=== PATIENT | female | born 1985 | race Caucasian/White ===

== ENCOUNTER → 2020-04-03 | Outpatient (CLI) | payer OTHER | LOC: COL.RAD 04-02 13:30 | DX: O99.281 Endocrine, nutritional and metabolic diseases complicating pregnancy, first trimester (principal); Z3A.00 Weeks of gestation of pregnancy not specified ==

== ENCOUNTER 2020-10-06 01:40 | Outpatient (CLI) | payer OTHER ==
[~2020-10-06] VITALS: Ht 157.5 cm; Wt 74.1 kg
--- NOTE | 2020-10-06 01:50 | NUR ---
Pt arrives on unit ambulatory with office automation clerk. States ctx x24 hours that have increased over the past several hours with bloody show. Denies LOF and reports GFM. Changed into a clean gown. EFM and toco applied. VSS. SVE per this RN /-2. Pt desires to [facility]. Admission assessment completed. Pt updated on POC. Bed locked in low position. Call light within reach. No questions or concerns at this time.
[2020-10-06] MEDS ORDERED: PRENATAL MVI (01:57)
[2020-10-06 02:10] VITALS: BP 123/73; PULSE 98; TEMP 98.1
--- NOTE | 2020-10-06 02:10 | NUR ---
Cat 1 FHR strip obtained. Pt taken off monitors to birthing ball and ambulate.
--- NOTE | 2020-10-06 02:53 | NUR ---
Pt back to monitors. SVE unchanged. Discharge instructions given. No questions or concerns at this time.
== END 2020-10-06 03:30 | disposition home or self-care (01) ==
LOC: LDRO 01:40
DX: O26.93 Pregnancy related conditions, unspecified, third trimester (principal); Z3A.39 39 weeks gestation of pregnancy

== ENCOUNTER 2020-10-06 15:59 | Inpatient (IN) | payer OTHER ==
[~2020-10-06] VITALS: Ht 157.5 cm; Wt 74.1 kg
[2020-10-06] VITALS (18 sets, daily range): BP systolic 80–120; BP diastolic 40–74; PULSE 78–111; TEMP 97.7–98.8
--- NOTE | 2020-10-06 15:45 | NUR ---
PATIENT TO LR 3. PATIENT STATES SHE IS HERE WITH CONTRACTIONS. PATIENT DENIES LEAKING OF FLUID OR BLEEDING. PATIENT STATES SHE WOULD LIKE TO HAVE A . SVE 2. DR HONG NOTIFIED. PATIENTS SPOUSE PRESENT. PATIENT CHANGED INTO GOWN, ON EFM, LEONEL BRICENO
[~2020-10-06 15:59] MED LIST: PRENATAL MVI
[2020-10-06 16:52] LABS: HEMATOCRIT 39.2 % (37.0-47.0); HEMOGLOBIN 13.4 g/dl (12.5-16.0); MEAN CELL VOLUME 92 fl (80.0-100.0); MEAN CORPUSCULAR HEMOGLOBIN 31 pg (27.0-31.0); MEAN CORPUSCULAR HGB CONC 34 g/dl (33.0-37.0); MEAN PLATELET VOLUME 9.6 fl (7.4-10.4); PLATELET COUNT 252 K/mm3 (130-400); RED BLOOD COUNT 4.28 M/mm3 (4.10-5.30); REDCELL DISTRIBUTION WIDTH-CV 14.6 % (11.5-14.5)
--- NOTE | 2020-10-06 17:32 | NUR ---
PATIENT REFUSES COVID VACCINE
--- NOTE | 2020-10-06 18:45 | NUR ---
184 DR HONG AWARE OF PT B/P. PT AWAKE AND ALERT. HOB ELEVATED. VAG BLEEDING WNL.
[2020-10-06 18:51] LABS: HYPOCHROMIA 1+; LYMPHOCYTE 2 % (20.0-51.0); NEUTROPHILS 95 % (42.0-75.2); PLATELET ESTIMATE NORMAL (NORMAL)
--- NOTE | 2020-10-06 19:15 | NUR ---
1915 REG DIET TAKEN.
--- NOTE | 2020-10-06 20:30 | NUR ---
2030 UNABLE TO MOVE LEGS. TURNED FROM SIDE TO SIDE. ABD BINDER ON. PERICARE DONE. FF AT UMBILICUS. SCDS ON. IV TO INT. TAKING PO WELL.
[2020-10-07 05:30] VITALS: BP 97/58; PULSE 92; TEMP 98.8
[2020-10-07 07:40] VITALS: BP 104/68; PULSE 78; TEMP 98.3
--- NOTE | 2020-10-07 09:34 | NUR ---
Initial visit; Parents thanked Legal Records Clerk for offering congratulations and God's blessings for the of their son. Legal Records Clerk thanked family for choosing [facility].
[2020-10-07 12:00] VITALS: BP 105/67; PULSE 84; TEMP 98
[2020-10-07 17:00] VITALS: BP 98/57; PULSE 97; TEMP 98.3
[2020-10-07 20:20] VITALS: BP 103/63; PULSE 96; TEMP 97.8
[2020-10-08] MEDS ORDERED: MOTRIN 800800 MG/TAB PO (07:26)
[2020-10-08] MEDS ORDERED: PERCOCET 325 MG1 TA2 PO (07:27)
[2020-10-08] MEDS ORDERED: SENOKOT S 50 MG1 TAB PO (07:27)
[2020-10-08 07:45] VITALS: BP 104/64; PULSE 85; TEMP 97.9
[2020-10-08 15:30] VITALS: BP 96/58; PULSE 82; TEMP 97.8
[2020-10-08 21:00] VITALS: BP 101/69; PULSE 83; TEMP 97.5
--- NOTE | 2020-10-09 09:00 | NUR ---
Rests in bed, alert. Ibuprofen 800 mg given as ordered.
[2020-10-09 10:00] VITALS: BP 118/69; PULSE 84; TEMP 98
== END 2020-10-09 13:00 | disposition home or self-care (01) | DRG 788 ==
LOC: LDRO 15:59 → OB 16:19 → LDR 16:19 → OB 18:01
PROVIDERS: ADMIT Obstetrics & Gynecology
PROC: 10D00Z1 Extraction of Products of Conception, Low, Open Approach (ICD-10-PCS; principal; 2020-10-06)
DX: O34.211 Maternal care for low transverse scar from previous cesarean delivery (principal); Z3A.39 39 weeks gestation of pregnancy; Z37.0 Single live birth; O77.0 Labor and delivery complicated by meconium in amniotic fluid
CPT/HCPCS: J0690; J1885; J2175; J2370; J2405; J2590; J7120